=== PATIENT | female | born 1980 | race Caucasian/White ===

== ENCOUNTER 2018-12-12 19:14 | Emergency (ER) | payer BC ==
[2018-12-12] MEDS: RACEPINEPHRINE 2.25%(NEB) 0.5 ML AMP HHN (19:29)
[2018-12-12] MEDS: DEXAMETHASONE 10 MG/ML 1 ML INJ IV (19:36)
[2018-12-12] MEDS: FAMOTIDINE 20 MG INJ IV (19:36)
[2018-12-12] MEDS: LORAZEPAM 2 MG INJ IV (19:36)
== END 2018-12-12 21:38 | disposition home or self-care (01) ==
LOC: E/R 21:38
DX: F41.9 Anxiety disorder, unspecified (principal)
CPT/HCPCS: 94664; 96374; 96375; 99284-25